=== PATIENT | female | born 1995 | race American Indian/Alaskan Native ===

== ENCOUNTER 2022-01-07 02:40 | Emergency (ER) | payer SELFPAY ==
[2022-01-07 03:35] VITALS: BP 102/57
== END 2022-01-08 14:01 | disposition left against medical advice (07) ==
LOC: ED 02:40
DX: D57.219 Sickle-cell/Hb-C disease with crisis, unspecified (principal); Z53.21 Procedure and treatment not carried out due to patient leaving prior to being seen by health care provider